=== PATIENT | male | born 1980 | race Hispanic/Latino ===

== ENCOUNTER 2024-09-21 12:30 | Emergency (ER) | payer BC ==
[~2024-09-21] VITALS: Ht 177.8 cm; Wt 142.4 kg
[2024-09-21] MEDS: DIPH,PERTUSS(ACELL),TET VAC/PF 0.5 ML VIAL IM ONE (13:26)
[2024-09-21] MEDS: HYDROcodone/APAP 5/325 1 TAB TABLET PO ONE (13:26)
[2024-09-21] MEDS: RABIES VACC, HUMAN DIPLOID/PF 2.5 UNIT ML IM SCH (13:28)
[2024-09-21] MEDS: ceFAZolin SODIUM 2 GM VIAL IVPB SCH (13:28)
--- NOTE | 2024-09-21 13:41 | HMCIMG ---
TIBIA/FIBULA 2VWS LT HISTORY: Dogbite COMPARISON: None TECHNIQUE: 4 images of left tibia and fibula were obtained. FINDINGS: Soft tissue defect is seen at the medial aspect of the left lower extremity. No evidence of radiopaque foreign body is seen. There is no acute displaced fracture or dislocation. Degenerative changes are seen. IMPRESSION: 1. Findings as described above.
[2024-09-21] MEDS: LIDOCAINE HCL 1% 20 ML VIAL INJ SCH (14:39)
--- NOTE | 2024-09-21 15:23 | ERN ---
ED Note History of Present Illness Stated Complaint: DOG BITE Chief Complaint: Animal Bite Time Seen by MD: 12:37 Time Seen by Midlevel: 12:37 Dictation: The patient is a 44-year-old male with no known medical history who presents to the emergency department with complaints of dog bite to left lower leg onset 12pm. Patient reports he was out taking the trash when a random dog came near him and attacked him. 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 Patient unsure of tetanus vaccination status. Past Medical History Past Medical History: No Pertinent History Surgical History: None RN Note Reviewed/Agreed w/PFSH: Yes Review of System Dictation Constitutional: Negative for fever,chills, and weight loss Eyes: Negative for injury, pain,redness, and discharge ENT: Negative for injury,pain or swelling Cardiovascular: Negative for chest pain, palpitations, and edema Respiratory: Negative for shortness of breath, cough, and wheezing, Abdomen/GI: Negative for abdominal pain, nausea, vomiting, diarrhea, and con stipation Back: Negative for injury and pain : Negative for injury, bleeding and discharge MS/Extremity: Negative for injury and deformity Skin: Negative for rash, and discoloration. Positive for laceration left leg lower leg Neuro: Negative for headache, weakness, numbness, tingling, and seizure Psych: Negative for suicide ideation, homicidal ideation, and hallucinations Initial Vital Sign VS Vital Signs Date Time Temp Pulse Resp B/P (MAP) Pulse Ox O2 Delivery O2 Flow Rate FiO2 09/21/24 12:49 98.2 107 18 137/78 98 Room Air 0 09/21/24 12:54 21 Physical Exam Dictation Vital Signs reviewed General Appearance: Alert, oriented x 3, no acute distress, well developed, nourished. Head and Face: non-traumatic. Eyes: PERRL, pink conjunctivas, eyelid no trauma, anterior chamber with arcus senilis. Ears: Pinnas intact and no signs of trauma or erythema ear canals clear and no discharge TM no erythema Nose: No discharge, no bleeding. Oropharynx: Mouth normal, tongue pink. pharynx clear,no erythema, tonsils no exudates, no abscesses noted, mucous membrane moist Neck: Supple, non-tender, no thyromegaly, no masses, no JVD, no bruits Breast:Deferred Chest:No tenderness, no crepitus, no paradoxical movement, no retractions Lungs:Clear, well-ventilated, symmetric, no rales, no wheezing, no rhonchi, no stridor, good breath sounds bilaterally Heart: Regular rate, regular rhythm, no murmur, no gallops Vascular: no peripheral edema, pedal pulses 3+ bilaterally Abdomen: Soft, positive bowel sounds, nondistended, no guarding, nontender, no rebound, no masses no hepatomegaly, no splenomegaly, no Og's sign, no hernias. Rectal: Deferred Genital: Deferred Neurological: Normal speech, motor function intact, sensory function intact Musculoskeletal: Neck nontender, full range of motion, back nontender, full rang e of motion, Extremities: nontender, full range of motion Skin: Color pink, dry, no turgor, no rash, , no abrasions, no contusions. 10cm laceration to left anterior lower leg, minimal bleeding, granulated tissue, cap refill distal to injury less than 2 seconds Lymphatic: Deferred Results (Laboratory/Radiology) Laboratory/Radiology REASON: dog bite, injury ORDERING PHYSICIAN: AFRICA LEON SILVER BUFFER PROCEDURE: TIBFIB LT - TIBIA/FIBULA 2VWS LT TIBIA/FIBULA 2VWS LT HISTORY: Dogbite COMPARISON: None TECHNIQUE: 4 images of left tibia and fibula were obtained. FINDINGS: Soft tissue defect is seen at the medial aspect of the left lower extremity. No evidence of radiopaque foreign body is seen. There is no acute displaced fracture or dislocation. Degenerative changes are seen. IMPRESSION: 1. Findings as described above. Labs Reviewed?: Yes ED Course ED Course Orders Procedure Category Date Status Time Tibia/Fibula 2vws Lt RAD 09/21/24 Resulted 12:52 Diph,Pertuss(Acell),Tet PHA 09/21/24 Complete Vac/Pf (Tdap) 13:00 Hydrocodone/Apap PHA 09/21/24 Complete 5/325 (Erie 5/325mg) 13:00 Wound Care (Er) CPOE 09/21/24 Transmitted 12:52 Rabies Vacc, Human PHA 09/21/24 In Process Diploid/Pf (Imovax Ra 13:00 Cefazolin Sodium PHA 09/21/24 In Process (Ancef) 13:00 Lidocaine Hcl 1% 20ml PHA 09/21/24 In Process Vial (Lidocaine Hc 14:30 Current Medications Medications (Trade) Dose Ordered Sig/Jim Route PRN Reason Start Time Stop Time Status Last Admin Dose Admin Acetaminophen/ Hydrocodone Bitart (NORco 5/325MG) 1 tab ONCE ONCE PO 09/21/24 13:00 09/21/24 13:01 DC 09/21/24 13:26 Cefazolin Sodium (Ancef) 2 gm ONCE IVPB 09/21/24 13:00 10/01/24 12:59 09/21/24 13:28 Diphtheria/ Tetanus/Acell Pertussis (Tdap) 0.5 ml ONCE ONCE IM 09/21/24 13:00 09/21/24 13:01 DC 09/21/24 13:26 Lidocaine HCl (Lidocaine HCl 1% 20ml Vial) 15 ml ONCE INJ 09/21/24 14:30 10/21/24 14:29 09/21/24 14:39 Rabies Vaccine Human Diploid Cell (Imovax Rabies Vaccine) 2.5 unit ONCE IM 09/21/24 13:00 10/21/24 12:59 09/21/24 13:28 Vital Signs Date Time Temp Pulse Resp B/P (MAP) Pulse Ox O2 Delivery O2 Flow Rate FiO2 09/21/24 14:37 98.2 87 16 132/66 98 Room Air* 0 21 09/21/24 13:56 98.2 107 16 132/68 98 Room Air* 0 21 09/21/24 12:54 98.2 107 16 137/78 98 Room Air* 0 21 09/21/24 12:49 98.2 107 18 137/78 98 Room Air 0 Medical Decision Making MDM The patient is a 44-year-old male with no known medical history who presents to the emergency department with complaints of dog bite to left lower leg onset 12pm. Patient reports he was out taking the trash when a random dog came near him and attacked him. 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 Patient unsure of tetanus vaccination status. Extremities reveal no fractures or foreign body. Left leg laceration repaired. Patient tolerated procedure well, CMS intact. Patient updated for tetanus, received a dose of antibiotics in ER. First rabies vaccine given. Patient instructed to follow up with PCP Differential diagnosis: Open fracture, laceration, cellulitis, foreign body Need for hospitalization: Patient does not meet criteria for hospitalization. There are no social concerns with this patient. Procedure Procedure Dictation: Time and Date Performed: 09/21/2024 1500 INDICATION: Laceration Location:Left lower leg Informed consent was obtained. Pre-procedure time out was obtained. Anesthetic:1% lidocaine 15min Manual prep of skin and wound was done with Pulsavac plus betadine and saline Foreign Body: NO foreign bodies were identified. Length Repaired:10 cm Suture used:nylon and chromic # of simple sutures:14 Aseptic technique was used during the entire procedure. Wound Location: lower extremity Wound's Depth, Shape: irregular Wound Explored: contaminated Irrigated w/ Saline (ccs): 1000 Betadine Prep?: Yes Anesthesia: 1% Lidocaine Volume Anesthetic (ccs): 15 Wound Debrided: extensive Wound Repaired With: sutures Suture Size/Type: nylon Number of Sutures: 14 Layer Closure?: Yes Deep Layer Suture Size/Type: 3:0, chromic Number Deep Layer Sutures: 20 Sterile Dressing Applied?: Yes DX & DISP Disposition: Discharge Departure Impression: Primary Impression: Dog bite Additional Impression: Laceration Condition: Stable Scripts Amoxicillin/Potassium Clav (Amox Tr-K Clv 875-125 mg Tab) 875 Mg-125 Mg Tablet 1 TAB PO BID for 5 Days, #20 TAB 0 Refills Prov: AFRICA LEON [facility] 09/21/24 Additional Instructions: Keep your stitches clean and dry. Do not put your stitches under water, such as in a bath, pool, or cole. This can slow healing and raise your chance of getting an infection. Avoid activities or sports that could hurt the area of your stitches for 1-2 weeks. You should call your doctor if you develop any fever, redness or swelling around the cut, or pus draining from the cut. Your sutures will need to be removed in 10-14 days. Take medications as prescribed FOLLOW-UP WITH PRIMARY CARE PROVIDER IN 1 TO 2 DAYS. TAKE MEDICATIONS DIRECTED HERE IN THE EMERGENCY ROOM. OKAY TO CONTINUE HOME MEDICATIONS UNLESS OTHERWISE DISCUSSED DURING YOUR VISIT IN THE EMERGENCY ROOM TODAY. RETURN TO YOUR NEAREST EMERGENCY ROOM IF SYMPTOMS WORSEN OR IF THERE IS NO IMPROVEMENT. CALL 911 IF YOU NEED IMMEDIATE ASSISTANCE. TAKE TYLENOL OR MOTRIN [id number] NEEDED AND IF NO CONTRAINDICATIONS ARE PRESENT. INCREASE ORAL HYDRATION. A WOUND CULTURE OR URINE CULTURE WAS ORDERED HERE IN THE EMERGENCY ROOM DEPARTMENT PLEASE FOLLOW-UP WITH PRIMARY CARE PROVIDER AND ADVISE THEM TO GET REPEAT PORTS FROM OUR FACILITY. IF YOU HAD ANY SHASHANK WRAP/SPLINTS THAT WERE APPLIED HERE, PLEASE DO NOT REMOVE THEM UNTIL YOU SEE YOUR PRIMARY CARE OR SPECIALTY. Referrals: ANGELLA GOLDSMITH MD (PCP) Time of Disposition: 15:46 I have examined patient, & reviewed all documents, & agreed W/ the Diagnosis, and Plan AFRICA LEON [facility] Sep 21, 2024 15:23
[2024-09-21] MEDS ORDERED: AMOX1TAB16 PO (15:48)
[2024-09-21] MEDS: NEOMY SULF/BACITRA/POLYMYXIN B 1 EACH PACKET TP ONE (16:25)
[2024-09-21 16:26] VITALS: BP 137/69; PULSE 87; RESP 16; TEMP 98.2; O2SAT 98
== END 2024-09-21 16:27 | disposition home or self-care (01) ==
LOC: EDH 12:30
DX: S81.852A Open bite, left lower leg, initial encounter (principal); W54.0XXA Bitten by dog, initial encounter; Y93.89 Activity, other specified; Y92.89 Other specified places as the place of occurrence of the external cause; Y99.8 Other external cause status
CPT/HCPCS: 99284; 90675; 96365; 90715; 73590; 90471; 90472; 12004; J0690